=== PATIENT | female | born 1980 | race Two or more races ===

== ENCOUNTER 2016-10-04 07:06 | Emergency (ER) | payer OTHER ==
[~2016-10-04] VITALS: Ht 170.2 cm; Wt 68.0 kg
[2016-10-04 07:10] VITALS: BP 116/76
[2016-10-04] MEDS ORDERED: NKM (07:10)
--- NOTE | 2016-10-04 07:17 | Emergency Room Report ---
History of Present Illness General Chief Complaint: Pain Source: Patient Present Illness HPI The patient presents with [employer] and EMS. She fell into a trash bin yesterday and hit her right shoulder and left hip. She has pain in those areas. She was complaining of 10/10 pain paramedics but was in no distress. She's been ambulatory. She also was using her right hand. Pain is aching, not radiating. She's arrested for prostitution. She states her last period was 4 years ago. She doesn't think she's . She's passed a little bit of blood in her urine. She denies dysuria or discharge. No headache, rashes, NVD, chest pain, cough, dyspnea. Slightly depressed at being arrested. No SI or HI. Allergies: Coded Allergies: No Known Allergies (Unverified , 10/04/16) Patient History Past Medical History: see triage record Social History: Reports: drug use - denied, but see tox, smoking, Denies: alcohol use Social History Narrative In the streets. Born in [place] with 7 children. Reviewed Nursing Documentation: PMH: Agreed, PSxH: Agreed Nursing Documentation-PMH Past Medical History: No Stated History Review of Systems All Other Systems: negative except mentioned in HPI Physical Exam Vital Signs Date Time Temp Pulse Resp B/P Pulse Ox O2 Delivery O2 Flow Rate FiO2 10/04/16 07:05 97.7 84 16 116/76 98 Room Air Sp02 EP Interpretation: reviewed, normal General Appearance: well appearing, no apparent distress, GCS 15, other - slightly dishevelled Head: normocephalic Eyes: bilateral eye PERRL, bilateral eye normal inspection ENT: moist mucus membranes - poor dentition Neck: supple Respiratory: lungs clear, normal breath sounds Cardiovascular #1: regular rate, rhythm Cardiovascular #2: 2+ radial (R) Gastrointestinal: normal inspection, normal bowel sounds, non tender, no mass, non-distended Musculoskeletal: back normal, gait/station normal, normal range of motion, pelvis stable, tender - R shoulder and L hip Neurologic: alert, oriented x3, grossly normal Psychiatric: depressed affect Skin: warm/dry, other - ecchymoses L hip small Medical Decision Making Diagnostic Impression: Primary Impression: Contusion, hip Qualified Codes: S70.02XA - Contusion of left hip, initial encounter Additional Impressions: Shoulder contusion Qualified Codes: S40.011A - Contusion of right shoulder, initial encounter UTI (urinary tract infection) Qualified Codes: N30.00 - Acute cystitis without hematuria Substance abuse ER Course Patient presents with left hip and right shoulder pain after fall yesterday. Also she has abnormal menses and some hematuria. Differential includes contusions, hematoma, fracture, strain amongst others. She is allergic to Tylenol given Motrin. Also x-rays were ordered along with a urinalysis. Xrays without fx or acute abnormalities. UA with pyuria. + tox. Improved with treatment. Patient stable for outpatient observation and treatment. Laboratory Tests Test 10/04/16 07:11 Urine Color Yellow Urine Appearance Turbid Urine pH 7 (4.5-8.0) Urine Specific Sharon 1.010 (1.005-1.035) Urine Protein 2+ (NEGATIVE) H Urine Glucose (UA) Negative (NEGATIVE) Urine Ketones Negative (NEGATIVE) Urine Occult Blood 1+ (NEGATIVE) H Urine Nitrite Negative (NEGATIVE) Urine Bilirubin Negative (NEGATIVE) Urine Urobilinogen 1 MG/DL (0.0-1.0) H Urine Leukocyte Esterase 3+ (NEGATIVE) H Urine RBC 0-2 /HPF (0 - 2) Urine WBC 15-20 /HPF (0 - 2) H Urine Squamous Epithelial Cells Few /LPF (NONE/OCC) Urine Triple Phosphate Crystals Moderate /LPF (NONE) H Urine Bacteria Many /HPF (NONE) H Urine HCG, Qualitative Negative Urine Opiates Screen Negative (NEGATIVE) Urine Barbiturates Screen Negative (NEGATIVE) Phencyclidine (PCP) Screen Negative (NEGATIVE) Urine Amphetamines Screen Positive (NEGATIVE) H Urine Benzodiazepines Screen Negative (NEGATIVE) Urine Cocaine Screen Negative (NEGATIVE) Urine Marijuana (THC) Screen Negative (NEGATIVE) Other X-Ray Diagnostic Results Other X-Ray Diagnostic Results #1: X-Ray Ordered: r shoulder EP Interpretation: Yes Findings: no fractures, no dislocation, no soft tissue swelling, other - djd Number of Views: 3 Other X-Ray Diagnostic Results #2: X-Ray Ordered: L hip Findings: no fractures, no dislocation, no soft tissue swelling Number of Views: 2 Last Vital Signs Date Time Temp Pulse Resp B/P Pulse Ox O2 Delivery O2 Flow Rate FiO2 10/04/16 08:37 97.8 78 16 111/70 99 Room Air Status: improved Disposition: D/C TO [facility] IN [facility] Condition: Improved Scripts Nitrofurantoin Monohyd/M-Cryst* (MACROBID 100 MG*) 100 Mg Capsule 100 MG ORAL EVERY 12 HOURS, #14 CAP Prov: Miguel A Rizo M.D. 10/04/16 Ibuprofen* (MOTRIN*) 600 Mg Tablet 600 MG ORAL Q6H Y for For Pain, #16 TAB Prov: Miguel A Rizo M.D. 10/04/16 Miguel A Rizo M.D. October 04, 2016 07:17
[2016-10-04 07:44] LABS: APPEARANCE,URINE TURBID; KETONES,URINE NEGATIVE (NEGATIVE); LEUKOCYTE ESTERASE ,URINE 3+ (NEGATIVE); NITRITE,URINE NEGATIVE (NEGATIVE); PH,URINE 7 (4.5-8.0); PROTEIN,URINE 2+ (NEGATIVE); UROBILINOGEN,URINE 1 MG/DL (0.0-1.0)
[2016-10-04 08:06] LABS: BACTERIA,URINE MANY /HPF; RBC,URINE 0-2 /HPF (0 - 2); SQUAMOUS EPITHELIAL CELL,UR FEW /LPF (NONE/OCC); TRIPLE PHOSPHATE CRYSTAL,UR MODERATE /LPF; WBC,URINE 15-20 /HPF (0 - 2)
[2016-10-04 08:30] VITALS: BP_SYST 111; BP_DIAS 7; BP_DIAS 70
[2016-10-04] MEDS ORDERED: IBUPROFEN600 MG ORAL (08:32)
[2016-10-04] MEDS ORDERED: NITROFURANTOIN100 M2 ORAL (08:32)
[2016-10-04 08:37] VITALS: BP 111/70
--- NOTE | 2016-10-04 11:02 | Diagnostic Imaging Report ---
Indication: Pain Findings: 3 views of the right shoulder were obtained. No acute fractures, malalignment, erosions or periostitis are identified. Bone mineralization is within normal limits. Soft tissues are unremarkable. Impression: Negative examination of the shoulder.
--- NOTE | 2016-10-04 13:58 | Diagnostic Imaging Report ---
Indications: hip pain Findings: Two views of the left hip were obtained. No acute fracture is demonstrated. The left hip joint space appears well maintained. There is mild osteophyte formation involving acetabulum with some subcortical irregularity noted. Findings are probably on the basis of osteoarthritis. Alignment of the hip is within normal limits. Soft tissues are unremarkable. Impression: Mild osteoarthritis of the left hip suspected.
== END 2016-10-04 08:37 ==
LOC: EDBD 07:06 → EMR 07:42
DX: S70.02XA Contusion of left hip, initial encounter (principal); S40.011A Contusion of right shoulder, initial encounter; N30.00 Acute cystitis without hematuria; W19.XXXA Unspecified fall, initial encounter; Y93.9 Activity, unspecified; Y92.9 Unspecified place or not applicable; F17.200 Nicotine dependence, unspecified, uncomplicated
CPT/HCPCS: 73502; 80300; 81003; 81025; 87086; 87181; 99284